=== PATIENT | female | born 1960 | race Caucasian/White ===

== ENCOUNTER 2018-07-11 13:19 | Emergency (ER) | payer OTHER ==
[2018-07-11 13:51] LABS: #Basophils 0.1 thou/uL (0.0-0.2); #Eosinphils 0.1 thou/uL (0.0-0.7); #Lymphocytes 2.4 thou/uL (1.20-3.40); #Monocytes 0.4 thou/uL (0.11-0.59); #Neutrophils 7.8 thou/uL (1.40-6.50); %Basophils 0.8 % (0.0-1.0); %Eosinophils 0.9 % (0.0-10.0); %Lymphocytes 22.5 % (21.0-51.0); %Monocytes 3.4 % (0.0-10.0); %Neutrophils 72.5 % (42.0-75.0); Hemoglobin 16.2 g/dL (12.0-16.0); Mean Corpuscular HGB CONC 32.9 g/dL (32.0-36.0); Mean Corpuscular Hemoglobin 28.3 pg (27.0-31.0); Mean Corpuscular Volume 85.9 fL (78.0-98.0); Mean Platelet Volume 9.5 fL (7.4-10.4); Platelet Count 224 thou/uL (130-400); RBC Distribution Width 13.7 % (11.5-14.5); Red Blood Cell (RBC) Count 5.72 mill/uL (4.20-5.40); White Blood Cell (WBC) Count 10.7 thou/uL (4.8-10.8)
[2018-07-11 14:14] LABS: ALT (SGPT) 30 U/L (8-55); AST (SGOT) 21 U/L (5-34); Albumin 4.6 g/dL (3.5-5.0); Alkaline Phosphatase 122 U/L (40-150); Anion Gap 14 mmol/L (10-20); BUN (Urea Nitrogen) 13 mg/dL (9.8-20.1); Bilirubin, Total 0.3 mg/dL (0.2-1.2); Calc. Creatinine Clearance 0 mL/min (70-130); Calcium 9.8 mg/dL (7.8-10.44); Carbon Dioxide 22 mmol/L (22-29); Chloride 108 mmol/L (98-107); Estimated GFR-MDRD 78; Globulin 3.6 g/dL (2.4-3.5); Glucose 91 mg/dL (70-105); Protein, Total 8.2 g/dL (6.0-8.3); Sodium 140 mmol/L (136-145)
== END 2018-07-11 16:07 | disposition home or self-care (01) ==
LOC: ERS 13:19
DX: E86.0 Dehydration (principal); R42 Dizziness and giddiness; E78.5 Hyperlipidemia, unspecified; F17.210 Nicotine dependence, cigarettes, uncomplicated; Z79.82 Long term (current) use of aspirin; Z79.899 Other long term (current) drug therapy
CPT/HCPCS: 36415; 80053; 85025; 93005; 96360

== ENCOUNTER 2019-06-25 09:38 | Inpatient (IN) | payer OTHER ==
[~2019-06-25 09:38] MED LIST: Iopamidol 370 76% 100 ML VIAL ONE
[2019-06-25 10:29] LABS: Hemoglobin 15.9 g/dL (12.0-16.0); Mean Corpuscular HGB CONC 32.1 g/dL (32.0-36.0); Mean Corpuscular Hemoglobin 27.5 pg (27.0-31.0); Mean Corpuscular Volume 85.8 fL (78.0-98.0); Mean Platelet Volume 9.3 fL (7.4-10.4); Platelet Count 204 thou/uL (130-400); RBC Distribution Width 13.6 % (11.5-14.5); Red Blood Cell (RBC) Count 5.78 mill/uL (4.20-5.40); White Blood Cell (WBC) Count 20.7 thou/uL (4.8-10.8)
[2019-06-25 10:48] LABS: ALT (SGPT) 47 U/L (8-55); AST (SGOT) 28 U/L (5-34); Albumin 4.7 g/dL (3.5-5.0); Alkaline Phosphatase 135 U/L (40-110); Anion Gap 17 mmol/L (10-20); BUN (Urea Nitrogen) 17 mg/dL (9.8-20.1); Bilirubin, Total 0.4 mg/dL (0.2-1.2); CK (CPK) 68 U/L (29-168); Calc. Creatinine Clearance 0 mL/min (70-130); Calcium 9.8 mg/dL (7.8-10.44); Carbon Dioxide 19 mmol/L (22-29); Chloride 105 mmol/L (98-107); Estimated GFR-MDRD 74; Globulin 3.2 g/dL (2.4-3.5); Glucose 118 mg/dL (70-105); Lipase 24 U/L (8-78); Potassium 4.4 mmol/L (3.5-5.1); Protein, Total 7.9 g/dL (6.0-8.3); Sodium 137 mmol/L (136-145)
[2019-06-25 10:52] LABS: Band 11 % (5-11); Lymphocytes 6 % (21-51); MDiff Complete? YES; Monocytes 5 % (0-10); Neutrophil 77 % (42-75); Platelet Morphology Comment Appears Adequate; RBC Morphology Normal
--- NOTE | 2019-06-25 11:31 | CT ---
CT ANGIOGRAM THORAX WITH IV CONTRAST AND 3-D RECONSTRUCTIONS CLINICAL INDICATION: Dyspnea. Substernal chest pain and difficulty breathing since one day ago. COMPARISON: None FINDINGS: Pulmonary arteries: No filling defects are seen in the pulmonary arteries to suggest a pulmonary embo jesse. 3. Mild cardiomegaly. Aorta: Vascular calcifications are seen in the thoracic aorta with atherosclerotic plaque and calcifi cation seen involving the origin and proximal left subclavian artery. Minimal vascular calcifications are seen in the coronary arteries. Lungs: There are groundglass densities seen dependently within the upper and lower lobes but greater at the lung bases. This exam does appear to be of obtained in expiratory phase imaging, and the groundglass densities are likely attributable to volume loss. A 4 mm pleural-based nodular density is seen along the minor fissure in the right middle lobe likely representing a small intrapleural lymph node. No additional discrete pulmonary nodule or mass is seen. No pleural effusion is identifie d. Mediastinum: There is enlargement of a few subcarinal lymph nodes largest measuring 1.3 cm in short a xis dimension. Slight prominence of soft tissue density in each hilar region is also present suggesting lymphadenopathy. The heart is enlarged. Thyroid gland: Slight heterogeneity of the most inferior aspect visualized left lobe of thyroid gland . This is difficult to further evaluate, and the thyroid gland is only partially imaged on this exam. Osseous structures: No acute process. Chest wall: No abnormality visualized. Upper abdomen: Small hiatal hernia is present. Remainder of the upper abdomen demonstrates grossly no rmal CT appearance for arterial phase of imaging IMPRESSION: 1. No CT evidence of a pulmonary embolus. 2. Nonspecific mediastinal and hilar lymphadenopathy. 3. Dependent groundglass densities within the lungs bilaterally. This exam is obtained in expiratory phase imaging, and findings are probably attributable to atelectasis. No consolidation or pleural fluid is seen. 4. Cardiomegaly. 5. Small hiatal hernia.
--- NOTE | 2019-06-25 11:35 | RAD ---
Exam: Chest one view HISTORY:Chest pain Comparison: 04/25/2013 FINDINGS: Cardiac silhouette: Normal Aorta: Unremarkable Pulmonary vessels: Normal Costophrenic angles: Bilateral effusion LUNGS: Bibasilar parenchymal changes Pneumothorax: None Osseous abnormalities: None IMPRESSION: Bibasilar pleural and parenchymal changes
[2019-06-25] MEDS ORDERED: cefTRIAXone\\ROCEPHIN 2 GM VIAL ONE (12:10)
[2019-06-25 12:19] LABS: Bacteria/HPF None Seen HPF (None Seen); Bilirubin Negative (Negative); Blood, Urine Trace (Negative); Clarity Clear (Clear); Glucose, Urine (Dipstick) Normal (Negative); Leukocyte Negative Leu/uL (Negative); Nitrite Negative (Negative); Protein, Urine (Dipstick) Negative (Neg-Trace); Squamous Epithelial 0-3 HPF (0-3); Urobilinogen Normal mg/dL (Less than 2); WBC/HPF None Seen HPF (0-3)
[2019-06-25] MEDS ORDERED: Azithromycin 500 MG VIAL ONE (12:44)
[2019-06-25] MEDS ORDERED: Albuterol 200 PUFF (6.7GM INHALER) INH SCH ×2 (12:45→15:45)
[2019-06-25] MEDS ORDERED: Ondansetron ODT 4 MG TAB PO PRN (14:04)
[2019-06-25] MEDS ORDERED: HYDROcodone/Acetaminophen 5/325 mg Tablet PO PRN (14:04)
[2019-06-25] MEDS ORDERED: Senokot S 8.6-50 MG TAB PO PRN (14:04)
[2019-06-25] MEDS ORDERED: Ondansetron PF 4 MG/2 ML Vial IVP PRN (14:04)
[2019-06-25] MEDS ORDERED: Zolpidem Tartrate 5 MG TAB PO PRN (14:04)
[2019-06-25] MEDS ORDERED: Acetaminophen 325 MG TAB PO PRN (14:04)
[2019-06-25] MEDS ORDERED: Calcium Carbonate 500 MG ChewTAB PO PRN (14:04)
[2019-06-25] MEDS ORDERED: Nicotine 14 MG PATCH TD SCH (14:15)
[2019-06-25 14:32] LABS: Lactic Acid 2.9 mmol/L (0.5-2.2)
[2019-06-25 14:46] LABS: Troponin I Less than 0.010 ng/mL (< 0.028)
[2019-06-25 16:19] VITALS: BMI 24.5
[2019-06-25 17:14] LABS: Troponin I Less than 0.010 ng/mL (< 0.028)
[2019-06-25] MEDS ORDERED: Sodium Chloride 0.9% 1,000 ML IV SCH (17:45)
--- NOTE | 2019-06-25 18:39 | HP ---
CHIEF COMPLAINT: Chest tightness and difficulty breathing. HISTORY OF PRESENTING ILLNESS: This is a 58-year-old female with no significant past medical history presented to the ER with one-day history of chest tightness and difficulty breathing. She has no complaints of fever. No complaints of cough. No complaints of abdominal pain or diarrhea. The patient on arrival was tachycardic with a heart rate around 114 to 120. Lactic acid was elevated and 2.6. CT of the chest did not show any PE. It did show ground-glass opacities scattered and mostly in the lower lobes bilaterally. The CT of the chest was read as possible atelectasis. No consolidation. No pneumonia. Due to the presentation, the patient was tested for COVID. The patient also was started on a sepsis protocol with IV fluid hydration, IV antibiotics. PAST MEDICAL HISTORY: Significant for abdominal aortic stenosis status post stent x1. ALLERGIES: NKDA. PRIMARY CARE PHYSICIAN: The patient's primary care physician is Dr. Hoffman. REVIEW OF SYSTEMS: CONSTITUTIONAL: Negative constitutional review of systems, historian, denies any fever or cough. HEENT: Negative for any eye pain or vision changes. Negative for ear, nose, or throat reviews. Negative for any rhinorrhea or sore throat or voice change. CARDIOVASCULAR: Negative for any palpitation. Complaints of chest tightness. RESPIRATORY: As in HPI. GI: Negative for any gastrointestinal review of systems. Denies any abdominal pain or constipation or diarrhea. GENITOURINARY: Female, negative genitourinary review of systems. Denies any dysuria or frequency. NEUROLOGIC: Negative neurological review of systems. Denies any headache or mental status changes. Denies paralysis or paresthesias or sensory changes. PSYCHIATRIC: Denies any anxiety or depression. PHYSICAL EXAMINATION: VITAL SIGNS: Constitutional vital signs reviewed. The patient is tachycardic. Rest of the vital signs are within normal limits. HEENT: Normocephalic and atraumatic head. Eye examination is within normal limits. Eyelids are normal for inspection. Pupils are equally round and reactive to light. Extraocular muscles are intact. No nystagmus. ENT examination is within normal limits. External ear and tympanic membranes are normal. No bleeding. Pharynx examination is normal. Uvula examination is normal. NECK: Include findings of normal range of motion. Trachea midline. No meningeal signs. No cervical adenopathy. RESPIRATORY/CHEST: Respiratory and chest examination are normal. There is no respiratory distress and breath sounds were clear. CARDIOVASCULAR: Examination is normal, has regular rate and rhythm and heart sounds are normal. ABDOMEN: Soft, nondistended, and nontender. No organomegaly. EXTREMITIES: No pain or swelling or redness of the joints. No edema. NEURO: No focal deficits. Cranial nerves are intact. PSYCHIATRIC: Examination is within normal limits. Normal affect. LABORATORY DATA: WBC is elevated at 20.7 and hemoglobin is 15.9. Sodium 137, potassium 4.4, and creatinine 0.8, and lactic acid is elevated at 2.3 and mildly elevated alkaline phosphatase at 135. B-type natriuretic peptide is 10.8, and troponin first set is lesser than 0.01. RADIOLOGY: Chest CT to rule out PE. CT of the chest without contrast did not show any pulmonary embolism. Some ground-glass opacities that has been read as atelectasis. No consolidation. No pneumonia. ASSESSMENT AND PLAN: 1. Pneumonia with sepsis. The patient to be admitted under sepsis protocol with IV fluid hydration, repeat lactic acid levels, blood and urine cultures, IV antibiotics. The patient's O2 saturations will be monitored and is on PRN NC O2 2. Suspect COVID. Nasopharyngeal swab has been obtained and we will follow up on the COVID results. For now, the patient will be kept in strict aisolation with droplet and airborne precautions. Job ID: [id number] MTDD
[2019-06-25 20:03] LABS: Lactic Acid 1.8 mmol/L (0.5-2.2)
[2019-06-25] MEDS ORDERED: Albuterol 200 PUFF (6.7GM INHALER) INH PRN (20:05)
[2019-06-26 04:52] LABS: #Eosinphils 0.1 thou/uL (0.0-0.7); #Lymphocytes 3.8 thou/uL (1.20-3.40); #Monocytes 1.1 thou/uL (0.11-0.59); #Neutrophils 9.1 thou/uL (1.40-6.50); %Basophils 0.4 % (0.0-1.0); %Eosinophils 0.6 % (0.0-10.0); %Lymphocytes 26.7 % (21.0-51.0); %Monocytes 7.8 % (0.0-10.0); %Neutrophils 64.6 % (42.0-75.0); Hemoglobin 13.6 g/dL (12.0-16.0); Mean Corpuscular HGB CONC 31.7 g/dL (32.0-36.0); Mean Corpuscular Hemoglobin 27.6 pg (27.0-31.0); Mean Corpuscular Volume 86.9 fL (78.0-98.0); Mean Platelet Volume 9.5 fL (7.4-10.4); Platelet Count 207 thou/uL (130-400); RBC Distribution Width 13.5 % (11.5-14.5); Red Blood Cell (RBC) Count 4.95 mill/uL (4.20-5.40); White Blood Cell (WBC) Count 14.1 thou/uL (4.8-10.8)
[2019-06-26 05:10] LABS: Anion Gap 14 mmol/L (10-20); BUN (Urea Nitrogen) 9 mg/dL (9.8-20.1); Calc. Creatinine Clearance 90 mL/min (70-130); Carbon Dioxide 18 mmol/L (22-29); Chloride 110 mmol/L (98-107); Estimated GFR-MDRD Greater than 90; Glucose 104 mg/dL (70-105); Potassium 3.7 mmol/L (3.5-5.1); Sodium 138 mmol/L (136-145)
[2019-06-26] MEDS ORDERED: Enoxaparin Sodium 40 MG/0.4 ML SYRINGE SC SCH (09:00)
[2019-06-26] MEDS ORDERED: cefTRIAXone\\ROCEPHIN 2 GM in Sodium Chloride 0.9% 100 ML IVPB SCH (12:00)
[2019-06-26 12:03] VITALS: BP 110/65; TEMP 98.3
[2019-06-26] MEDS ORDERED: Azithromycin 500 MG in Sodium Chloride 0.9% 250 ML 250 ML IVPB SCH (13:00)
--- NOTE | 2019-06-26 18:36 | DIS ---
DATE OF ADMISSION: 06/25/2019 DATE OF DISCHARGE: 06/26/2019 ADMISSION DIAGNOSES: 1. Pneumonia with sepsis. 2. Suspect COVID. DISCHARGE DIAGNOSES: 1. Pneumonia. 2. COVID negative. HISTORY OF PRESENTING ILLNESS: This is a 58-year-old female with no significant past medical history, presents to the ER with 1-day history of chest tightness and difficulty breathing. She had no complaints of any fever or cough and no complaints of abdominal pain on day of admission. Heart rate was around 114 to 120 with lactic acid elevated at 2.3, and a CT chest did not show any PE. It did show some ground-glass opacities scattered and mostly in the lower lobes bilaterally. The patient was admitted for pneumonia under sepsis protocol, and nasal pharyngeal swabs were obtained to rule out COVID-19. Subsequently, the COVID-19 came negative. The patient did well with IV fluids, IV antibiotics, and her lactic acid trended down to normal after IV hydration. The patient was then discharged with one week of Levaquin and to follow up with her primary care physician. DISCHARGE INSTRUCTIONS: 1. Please follow up with your PCP. 2. Take medications as prescribed. 3. Plenty of fluids. 4. Activity as tolerated. Job ID: [id number]
--- NOTE | 2019-06-28 04:45 | PQF ---
TRACY SWEELL REKHA SRINIVAS M.D. [id number] [address] [place] [address] [id number] CLINICAL DOCUMENTATION CLARIFICATION FORM: POST DISCHARGE Addendum to original discharge summary date: ____ Late entry note date: __ DATE: 06/28/2019 ATTN:CIRILO PARRA M.D. Please exercise your independent, professional judgment in responding to the clarification form. Clinical indicators are provided on the bottom of this form for your review Please check appropriate box(s) to clarify if the following diagnosis has been ruled in or ruled out: Sepsis [ ] Ruled in diagnosis [ ] Continue to treat [x ] Resolved [ ] Ruled out diagnosis [ ] Cannot rule out diagnosis [ ] Other diagnosis [ ] Unable to determine For continuity of documentation, please document condition throughout progress notes and discharge summary. Thank You. CLINICAL INDICATORS - SIGNS / SYMPTOMS / LABS - Admit diagnosis: Pneumonia with sepsis- DS, 06/25, Cirilo Parra MD - COVID negative- DS, 06/25, Cirilo Parra MD - WBC: 20.7H on 06/27, 14.1H on 06/25-Laboratory note -Pulse: 105H, RR: 24H, Temp: 99.6F-Vital signs RISK FACTORS - Pneumonia-DS, 06/25, Cirilo Parra MD TREATMENTS - Ceftriaxone.IV- MAY, 06/24 - Azithromycin.IV- 06/24 (This form is maintained as a part of the permanent medical record) 2014 [employer]. All Rights Reserved Corina [email or web address]
--- NOTE | 2019-06-28 15:19 | EKG ---
Test Reason : ER Blood Pressure : / mmHG Vent. Rate : 112 BPM Atrial Rate : 112 BPM P-R Int : 138 ms QRS Dur : 080 ms QT Int : 334 ms P-R-T Axes : 054 076 059 degrees QTc Int : 455 ms Sinus tachycardia Possible Left atrial enlargement Cannot rule out Anterior infarct , age undetermined Abnormal ECG Confirmed by OZ RAYA ([id number]), food editor DEANN WOODS ([id number]) on 06/28/2019 3:18:46 PM Referred By: Confirmed By:OZ Ortiz
== END 2019-06-26 14:51 | disposition home or self-care (01) | DRG 871 ==
LOC: ERS 09:38 → 2SW 15:23
PROVIDERS: ADMIT Family Medicine; ATTEND Family Medicine
PROC: 8E0ZXY6 Isolation (ICD-10-PCS; principal; 2019-06-25)
DX: A41.9 Sepsis, unspecified organism (principal); J18.9 Pneumonia, unspecified organism; Z20.828 Contact with and (suspected) exposure to other viral communicable diseases; Z95.5 Presence of coronary angioplasty implant and graft
CPT/HCPCS: 36415; 71045; 71275; 80048; 80053; 81003; 81015; 82550; 83605; 83690; 83880; 84484; 85025; 87040; 87081; 87430; 87635; 87804; 93005; 96365; 96367; J0456; J0696; J1650; J3490; J7050; Q9967; U0002

== ENCOUNTER 2019-07-01 11:35 | Emergency (ER) | payer OTHER ==
[2019-07-01 12:32] LABS: Bilirubin Negative (Negative); Blood, Urine Negative (Negative); Clarity Clear (Clear); Glucose, Urine (Dipstick) Normal (Negative); Leukocyte 75 Leu/uL (Negative); Nitrite Negative (Negative); Protein, Urine (Dipstick) Negative (Neg-Trace); RBC/HPF 0-3 HPF (0-3); Squamous Epithelial 0-3 HPF (0-3); Urobilinogen Normal mg/dL (Less than 2); WBC/HPF 0-3 HPF (0-3)
[2019-07-01 12:40] LABS: Bacteria/HPF Rare-Few HPF (None Seen)
--- NOTE | 2019-07-01 12:43 | RAD ---
Chest one view HISTORY: Dyspnea. COMPARISON: 06/25/2019. FINDINGS: Cardiac silhouette and pulmonary vasculature are unremarkable. Mediastinum is midline. No confluent airspace consolidation or evidence of pneumothorax. IMPRESSION : No active cardiopulmonary abnormalities are demonstrated.
[2019-07-01 12:44] LABS: #Basophils 0.1 thou/uL (0.0-0.2); #Eosinphils 0.1 thou/uL (0.0-0.7); #Lymphocytes 2.8 thou/uL (1.20-3.40); #Monocytes 0.5 thou/uL (0.11-0.59); #Neutrophils 7.8 thou/uL (1.40-6.50); %Basophils 0.6 % (0.0-1.0); %Eosinophils 1.2 % (0.0-10.0); %Lymphocytes 25.1 % (21.0-51.0); %Monocytes 4.5 % (0.0-10.0); %Neutrophils 68.6 % (42.0-75.0); Hemoglobin 16.3 g/dL (12.0-16.0); Mean Corpuscular HGB CONC 32.8 g/dL (32.0-36.0); Mean Corpuscular Hemoglobin 28.1 pg (27.0-31.0); Mean Corpuscular Volume 85.9 fL (78.0-98.0); Mean Platelet Volume 8.7 fL (7.4-10.4); Platelet Count 267 thou/uL (130-400); RBC Distribution Width 13.4 % (11.5-14.5); White Blood Cell (WBC) Count 11.3 thou/uL (4.8-10.8)
[2019-07-01 13:16] LABS: ALT (SGPT) 52 U/L (8-55); AST (SGOT) 28 U/L (5-34); Albumin 4.7 g/dL (3.5-5.0); Alkaline Phosphatase 132 U/L (40-110); Anion Gap 16 mmol/L (10-20); BUN (Urea Nitrogen) 13 mg/dL (9.8-20.1); Bilirubin, Total 0.2 mg/dL (0.2-1.2); CK (CPK) 53 U/L (29-168); Calc. Creatinine Clearance 0 mL/min (70-130); Calcium 10.1 mg/dL (7.8-10.44); Carbon Dioxide 22 mmol/L (22-29); Chloride 106 mmol/L (98-107); Estimated GFR-MDRD 74; Globulin 3.5 g/dL (2.4-3.5); Glucose 88 mg/dL (70-105); Protein, Total 8.2 g/dL (6.0-8.3); Sodium 140 mmol/L (136-145)
--- NOTE | 2019-07-03 14:24 | EKG ---
Test Reason : DIZZY Blood Pressure : / mmHG Vent. Rate : 089 BPM Atrial Rate : 089 BPM P-R Int : 138 ms QRS Dur : 074 ms QT Int : 356 ms P-R-T Axes : 063 089 047 degrees QTc Int : 433 ms Normal sinus rhythm Possible Left atrial enlargement Borderline ECG Confirmed by NISHANT BARTON, SYDNIE ([id number]), photo editor DEANN WOODS ([id number]) on 07/03/2019 2:23:32 PM Referred By: Confirmed By:SYDNIE DILLARD MD
== END 2019-07-01 13:31 | disposition home or self-care (01) ==
LOC: ERS 11:35
DX: R45.0 Nervousness (principal); R53.1 Weakness; T36.8X5A Adverse effect of other systemic antibiotics, initial encounter; E86.0 Dehydration; E78.5 Hyperlipidemia, unspecified; F17.210 Nicotine dependence, cigarettes, uncomplicated; Z79.899 Other long term (current) drug therapy
CPT/HCPCS: 71045; 80053; 81003; 81015; 82550; 83880; 84484; 85025; 93005; 96360

== ENCOUNTER 2019-11-12 12:05 | Outpatient (CLI) | payer OTHER ==
[2019-11-12] MEDS ORDERED: Magnevist 469MG/ML 20 ML VIAL ONE (13:11)
--- NOTE | 2019-11-12 13:24 | MRI ---
MRI BRAIN WITH AND WITHOUT IV CONTRAST: HISTORY: Headache. Pressure on top of the head COMPARISON: None CORRELATION: None FINDINGS: No restricted diffusion is seen. No evidence of infarct, hemorrhage, mass, midline shift or abnormal extra-axial fluid collections is noted. No abnormal postcontrast enhancement is seen. The ventricular size is appropriate and the basilar cisterns are patent. There are multiple foci of T2 prolongation in the periventricular white matter, consistent with chron ic small vessel ischemic disease. The visualized paranasal sinuses and mastoid air cells are well aerated. IMPRESSION: No evidence of acute intracranial process or mass.
== END 2019-11-12 12:06 | disposition home or self-care (01) ==
LOC: BICMRI 12:05
PROVIDERS: ATTEND Family Medicine
DX: R51 Headache (principal)
CPT/HCPCS: 70553; A9579

== ENCOUNTER 2020-11-17 16:09 | Emergency (ER) | payer OTHER ==
[2020-11-17 17:20] LABS: #Eosinphils 0.1 thou/uL (0.0-0.7); #Lymphocytes 2.3 thou/uL (1.20-3.40); #Monocytes 0.8 thou/uL (0.11-0.59); #Neutrophils 9.3 thou/uL (1.40-6.50); %Basophils 0.4 % (0.0-1.0); %Eosinophils 1.1 % (0.0-10.0); %Lymphocytes 18.4 % (21.0-51.0); %Neutrophils 74.2 % (42.0-75.0); Hemoglobin 14.4 g/dL (12.0-16.0); Mean Corpuscular HGB CONC 32.5 g/dL (32.0-36.0); Mean Corpuscular Hemoglobin 27.4 pg (27.0-31.0); Mean Corpuscular Volume 84.3 fL (78.0-98.0); Mean Platelet Volume 8.8 fL (7.4-10.4); Platelet Count 285 thou/uL (130-400); RBC Distribution Width 13.6 % (11.5-14.5); Red Blood Cell (RBC) Count 5.24 mill/uL (4.20-5.40); White Blood Cell (WBC) Count 12.5 thou/uL (4.8-10.8)
[2020-11-17 17:40] LABS: ALT (SGPT) 20 U/L (8-55); AST (SGOT) 17 U/L (5-34); Alkaline Phosphatase 108 U/L (40-110); Anion Gap 13 mmol/L (10-20); BUN (Urea Nitrogen) 13 mg/dL (9.8-20.1); Bilirubin, Total 0.3 mg/dL (0.2-1.2); Calc. Creatinine Clearance 0 mL/min (70-130); Calcium 9.1 mg/dL (7.8-10.44); Carbon Dioxide 23 mmol/L (22-29); Chloride 107 mmol/L (98-107); Globulin 3.3 g/dL (2.4-3.5); Glucose 155 mg/dL (70-105); Potassium 3.8 mmol/L (3.5-5.1); Protein, Total 7.3 g/dL (6.0-8.3); Sodium 139 mmol/L (136-145)
== END 2020-11-17 18:35 | disposition home or self-care (01) ==
LOC: ERS 16:09
DX: K59.00 Constipation, unspecified (principal); E86.0 Dehydration; Z79.899 Other long term (current) drug therapy; E78.5 Hyperlipidemia, unspecified; F17.210 Nicotine dependence, cigarettes, uncomplicated
CPT/HCPCS: 36415; 80053; 84484; 85025; 99284